=== PATIENT | female | born 1950 | race Caucasian/White ===

== ENCOUNTER 2022-04-28 07:07 | Outpatient (CLI) | payer MEDICARE, SELFPAY ==
--- NOTE | 2022-04-28 07:15 | TELERAD_ITS ---
[address] [address] Phone:?[phone] Fax:?[phone] Referring Physician Information: Jayesh Vargas M.D. [id number] [facility] [address] Phone:?[phone] Fax:?[phone] Patient:Aliyah Cervantes D.O.B:?1950 Sex:?Female Phone:?[phone] [facility] MRN:?[id number] Exam Date:?04/28/2022 ? Original Report EXAM: MRI of the LEFT KNEE, without contrast CLINICAL INFORMATION: Female, 72 years old, with left knee pain. INDICATION: Evaluate for lateral meniscal tear. PRIOR SURGERY: None reported. PLAIN FILMS: None available. COMPARISONS: No prior MRIs available. TECHNICAL INFORMATION: Using a 1.5T MR scanner and a localizing surface coil: sagittals: PD, PDFS coronals: PD, T2FS axials: PD, PDFS SEDATION: None CONTRAST: None FINDINGS: Knee joint: Effusion: Moderate left knee effusion. Popliteal cyst: None. Loose bodies: None. Subcutaneous and extra-articular soft tissues: Unremarkable. Ligaments: ACL: Intact ACL anteromedial and posterolateral bundles, without sprain or tear. PCL: Intact PCL, without acute or chronic injury. MCL: Intact MCL superficial and deep layers, without injury. LCL: Intact LCL, without injury. Posterolateral corner: No posterolateral corner soft tissue injury. Popliteus, biceps femoris, iliotibial band, popliteofibular ligament and lateral gastrocnemius are intact. Posteromedial corner: Mild-moderate semimembranosus insertional tendinopathy with moderate-marked semimembranosus bursitis (axial T2FS series 4 images 20-29). Pes anserine tendons and posterior oblique ligament are without injury, tendinopathy or bursitis. Extensor mechanism: Patellar tendon: Intact, without tendinopathy. Quadriceps tendon: Intact, without tendinopathy. Retinacula: Medial and lateral retinacula are intact. Fat pads: Unremarkable infrapatellar Hoffa's, quadriceps and prefemoral fat pads. Medial compartment: Medial meniscus: Apical free edge and undersurface fraying/subtle tearing is present throughout the medial meniscal posterior horn over a length of approximately 8 mm (sagittal PDFS series 6 images 20-22). Meniscal extrusion measures 3 mm. No parameniscal cyst. Medial femoral condyle: Broad-based grade II/III chondromalacia throughout the central surface of the medial femoral condyle, with mild marginal osteophytosis. Medial tibial plateau: Broad-based grade II chondromalacia of the medial tibial plateau, with minimal marginal osteophytosis. Lateral compartment: Lateral meniscus: Complex, multidirectional tearing throughout the entire lateral meniscus, most pronounced throughout the anterior horn and body segments (sagittal PD series 5 images 614 and coronal STIR series 8 images 12-22). This is associated with 6 oh meters of meniscal extrusion. No parameniscal cyst. Lateral femoral condyle & tibial plateau: Broad-based grade III chondromalacia throughout the central, weightbearing aspect of the lateral compartment, with moderate marginal osteophytosis and reactive osseous changes (coronal STIR series 8 image 18 and sagittal PDFS series 6 image 9). Patellofemoral joint: Patella: Generalized grade III/IV chondromalacia of the patella, with mild marginal osteophytosis and reactive osseous changes. Trochlea: Broad-based grade III/IV chondromalacia throughout the lateral facet and central sulcus of the trochlea, with moderate marginal osteophytosis and mild reactive osseous changes. Proximal tibiofibular joint: Unremarkable, without evidence of ligament sprain injury, joint effusion or adjacent marrow edema. Bones: No stress/occult fractures or other marrow edema/pathology. IMPRESSION: 1. Complex, multidirectional degenerative tearing throughout nearly the entire lateral meniscus. 2. Moderate osteoarthritis of the lateral compartment. 3. Moderate marked osteoarthritis of the patellofemoral compartment. 4. Apical free edge and undersurface fraying/subtle tearing of the medial meniscal posterior horn measuring 8 mm. 5. Mild osteoarthritis of the medial compartment. 6. Mild-moderate semimembranosus insertional tendinopathy with moderate-marked semimembranosus bursitis. 7. Moderate knee joint effusion. No popliteal (Rizzo's) cyst. 8. No cruciate or collateral ligament sprain/tear. BC Electronically signed on 04/28/2022 1:38:00 PM by Baudilio Choudhary M.D. Addendum A EXAM: MRI of the?RIGHT?KNEE, without contrast - AMENDED REPORT (See underlined below in Section:?Exam, clinical information, & findings) CLINICAL INFORMATION: Female, 72 years old, with?right?knee pain. INDICATION: Evaluate for lateral meniscal tear. PRIOR SURGERY: None reported. PLAIN FILMS: None available. COMPARISONS: No prior MRIs available. TECHNICAL INFORMATION: Using a 1.5T MR scanner and a localizing surface coil: sagittals: PD, PDFS coronals: PD, T2FS axials: PD, PDFS SEDATION: None CONTRAST: None FINDINGS: Knee joint: Effusion: Moderate?right?knee effusion. Popliteal cyst: None. Loose bodies: None. Subcutaneous and extra-articular soft tissues: Unremarkable. Ligaments: ACL: Intact ACL anteromedial and posterolateral bundles, without sprain or tear. PCL: Intact PCL, without acute or chronic injury. MCL: Intact MCL superficial and deep layers, without injury. LCL: Intact LCL, without injury. Posterolateral corner: No posterolateral corner soft tissue injury. Popliteus, biceps femoris, iliotibial band, popliteofibular ligament and lateral gastrocnemius are intact. Posteromedial corner: Mild-moderate semimembranosus insertional tendinopathy with moderate-marked semimembranosus bursitis (axial T2FS series 4 images 20-29). Pes anserine tendons and posterior oblique ligament are without injury, tendinopathy or bursitis. Extensor mechanism: Patellar tendon: Intact, without tendinopathy. Quadriceps tendon: Intact, without tendinopathy. Retinacula: Medial and lateral retinacula are intact. Fat pads: Unremarkable infrapatellar Hoffa's, quadriceps and prefemoral fat pads. Medial compartment: Medial meniscus: Apical free edge and undersurface fraying/subtle tearing is present throughout the medial meniscal posterior horn over a length of approximately 8 mm (sagittal PDFS series 6 images 20-22). Meniscal extrusion measures 3 mm. No parameniscal cyst. Medial femoral condyle: Broad-based grade II/III chondromalacia throughout the central surface of the medial femoral condyle, with mild marginal osteophytosis. Medial tibial plateau: Broad-based grade II chondromalacia of the medial tibial plateau, with minimal marginal osteophytosis. Lateral compartment: Lateral meniscus: Complex, multidirectional tearing throughout the entire lateral meniscus, most pronounced throughout the anterior horn and body segments (sagittal PD series 5 images 614 and coronal STIR series 8 images 12-22). This is associated with 6 oh meters of meniscal extrusion. No parameniscal cyst. Lateral femoral condyle & tibial plateau: Broad-based grade III chondromalacia throughout the central, weightbearing aspect of the lateral compartment, with moderate marginal osteophytosis and reactive osseous changes (coronal STIR series 8 image 18 and sagittal PDFS series 6 image 9). Patellofemoral joint: Patella: Generalized grade III/IV chondromalacia of the patella, with mild marginal osteophytosis and reactive osseous changes. Trochlea: Broad-based grade III/IV chondromalacia throughout the lateral facet and central sulcus of the trochlea, with moderate marginal osteophytosis and mild reactive osseous changes. Proximal tibiofibular joint: Unremarkable, without evidence of ligament sprain injury, joint effusion or adjacent marrow edema. Bones: No stress/occult fractures or other marrow edema/pathology. IMPRESSION: 1. Complex, multidirectional degenerative tearing throughout nearly the entire lateral meniscus. 2. Moderate osteoarthritis of the lateral compartment. 3. Moderate marked osteoarthritis of the patellofemoral compartment. 4. Apical free edge and undersurface fraying/subtle tearing of the medial meniscal posterior horn measuring 8 mm. 5. Mild osteoarthritis of the medial compartment. 6. Mild-moderate semimembranosus insertional tendinopathy with moderate-marked semimembranosus bursitis. 7. Moderate knee joint effusion. No popliteal (Rizzo's) cyst. 8. No cruciate or collateral ligament sprain/tear. BC Electronically signed on 04/28/2022 3:06:00 PM by Baudilio Choudhary M.D.
== END 2022-04-28 07:08 | disposition home or self-care (01) ==
LOC: MRI 07:08
PROVIDERS: PCP Family Medicine; Visit Provider Orthopaedic Surgery Sports Medicine
DX: M25.561 Pain in right knee (principal); S83.281A Other tear of lateral meniscus, current injury, right knee, initial encounter; M17.11 Unilateral primary osteoarthritis, right knee; M25.461 Effusion, right knee; M71.561 Other bursitis, not elsewhere classified, right knee
CPT/HCPCS: 73721

== ENCOUNTER 2022-08-04 09:41 | Day surgery (SDC) | payer MEDICARE, SELFPAY ==
[2022-08-04] VITALS (22 sets, daily range): BP systolic 96–147; BP diastolic 44–95; PULSE 53–79; RESP 13–16; TEMP 35.4–36.9; O2SAT 93–100; BMI 31.3
[2022-08-04] MEDS: CELECOXIB 200 MG CAPSULE PO ×2 (09:58→20:34)
[2022-08-04] MEDS: OXYCODONE (CR) 10 MG TAB.ER.12H PO (09:58)
[2022-08-04] MEDS: LACTATED RINGERS 1000 ML 1,000 ML 100 ML IV ×2 (10:00→12:03)
[2022-08-04] MEDS: ACETAMINOPHEN 500 MG TABLET 1000 MG PO ×2 (10:22→16:32)
--- NOTE | 2022-08-04 10:27 | CRLHL7_ITS ---
For Patients: As a result of the Cures Act, medical imaging exams and procedure reports are released immediately into your electronic medical record. You may view this report before your referring provider. If you have questions, please contact your health care provider. INDICATION: Post operative right total knee arthroplasty TECHNIQUE: Knee radiograph 2 views right COMPARISON: None FINDINGS: Bone: No acute fractures or aggressive bone lesions are identified. Joint: The patient is status post a total knee arthroplasty with patellar resurfacing. No significant knee effusion is seen. Soft tissue: Anterior skin, subcutaneous gas and joint gas are present from recent surgery. No radiopaque foreign bodies are seen. IMPRESSION: 1. There is an unremarkable postoperative appearance of the knee arthroplasty. Dictated by: Armand Mccauley MD @ 08/04/2022 14:05:32 (Electronically Signed)
[2022-08-04] MEDS: SODIUM CHLORIDE 0.9 % (FLUSH) 10 ML SYRINGE IVF (10:34)
[2022-08-04] MEDS: fentaNYL 100 MCG/2 ML inj IVP (10:54)
[2022-08-04] MEDS: MIDAZOLAM HCL 1 MG/ML inj IVP (10:54)
--- NOTE | 2022-08-04 11:04 | W.PM.NB ---
Nerve Block Nerve Block Time Seen by Provider: 10:55 Date Seen: 08/04/22 Type of block requested by surgeon for post-operative analgesia: geniculars and adductor canal Side: right Time out performed: Yes Verification of patient name: Yes Verification of date of : Yes Site marking: site marked Name of person performing procedure: jodi Continuous monitoring Was continuous monitoring of O2 sat, B/P, dowel inserting machine operator, recorded every 15 minutes?: Yes Procedure Checklist: sterile prep, needles and gloves Ultrasound guided. Images saved: Yes Medications given in 5ml increments after negative aspiration: Ropivicaine %: 0.5 mL: 20 Needle gauge: 20 Decadron (mg): 10 Precedex (mcg): 25 Patient tolerated procedure well: Yes Block Charges Block Charge (with Pro Fee): Femoral Nerve Use of Ultrasound Machine for Block: Yes- US Guidance/pain block
--- NOTE | 2022-08-04 11:06 | SUR.PREOP ---
TIME?OUT:?1053 PT/RN/MDA?VERIFICATION?OF?SURGICAL?SITE RIGHT KNEE,?PROCEDURE BLOCK,?AND?CONSENT OBTAINED?PRIOR?TO?INVASIVE?PROCEDURE.
--- NOTE | 2022-08-04 11:06 | W.PM.NB ---
Nerve Block Nerve Block Time Seen by Provider: 10:55 Date Seen: 08/04/22 Type of block requested by surgeon for post-operative analgesia: geniculars Side: right Time out performed: Yes Verification of patient name: Yes Verification of date of : Yes Site marking: site marked Name of person performing procedure: jodi Continuous monitoring Was continuous monitoring of O2 sat, B/P, outside plant cable engineer, recorded every 15 minutes?: Yes Procedure Checklist: sterile prep, needles and gloves Ultrasound guided. Images saved: Yes Medications given in 5ml increments after negative aspiration: Ropivicaine %: 0.5 mL: 10 Needle gauge: 25 Patient tolerated procedure well: Yes Block Charges Block Charge (with Pro Fee): Genicular Nerve Block Use of Ultrasound Machine for Block: No
[2022-08-04] MEDS: TRANEXAMIC ACID 100 MG/ML INJ 1000 MG IV (11:33)
[2022-08-04] MEDS: CEFAZOLIN 2 GM in 0.9 % SODIUM CHLORIDE Mini-bag 100 ML IVPB ×2 (11:33→17:51)
--- NOTE | 2022-08-04 12:37 | P.ORPRC_ITS ---
Procedure Note Date of procedure: 08/04/22 Procedure: PREOPERATIVE DIAGNOSIS: 1. Right knee osteoarthritis, primary, severe POSTOPERATIVE DIAGNOSIS: 1. Right knee osteoarthritis, primary, severe PROCEDURE: 1. Right total knee arthroplasty SURGEON: Jayesh Vargas MD. STACKING MACHINE OPERATOR: Dewey ARMANDO - Of note, a skilled assignment desk assistant was critical for this case to aid in patient positioning, tissue retraction, limb manipulation/positioning, and closure. ANESTHESIA: Spinal anesthetic IMPLANTS: DePuy J&J all cemented TKA - Attune PS femur size 5 regular, size 4 tibia, 5 poly spacer, 38 mm patella TOURNIQUET: 75 minutes at 300 torr EBL: 50 ml COMPLICATIONS: None evident INDICATIONS: The patient is a pleasant 72-year-old female who has experienced severe right knee pain and difficulty bearing weight. Workup included x-rays which revealed severe osteoarthrosis in the knee. Given the deformity, the dysfunction, and the pain, as well as the failure of nonoperative management, recommendation was made for surgery. FINDINGS: Full-thickness chondral loss lateral compartment with significant degenerative lateral meniscus tear. Significant chondromalacia remaining compartments. Large popliteal cyst. Multiple osteophytes diffusely around the femur and tibia DESCRIPTION OF PROCEDURE: Following a thorough discussion of risks, benefits, and alternatives consent was obtained and the right knee was marked. The patient was brought to the operating room and placed supine on the operating table. Induction of anesthesia was undertaken. 2 g IV Ancef and 1 g tranexamic acid was administered within 1 hr of incision preoperatively. Proper time-out was performed identifying proper patient, site, procedure. The operative extremity was prepped and draped in the appropriate sterile fashion using ChloraPrep after the patient was positioned supine with all bony prominences well padded. A longitudinal, anterior, midline skin incision was made starting approximately 3cm proximal to the superior pole of the patella and advanced distal to the tib ial tubercle. A median parapatellar arthrotomy was created. A medial subperiosteal sleeve was created with knife, phillips elevator and curved osteotome. The retropatellar fatpad was resected and the synovium in the suprapatellar pouch excised to visualize the anterior femoral cortex. Femoral preparation was performed via an intramedullary guide. Step drill allowed access into the femoral canal. The distal cutting guide was placed with 5? of valgus and 10 mm cut on the distal femur. Femur was sized using a posterior referencing guide in 3 ? of external rotation. This found have a best fit with the sizing noted above. The 4 in 1 cutting block was then placed, and the distal femur shaped accordingly. The box cut was then created and the trial implant inserted to confirm appropriate fit. We turned our attention to the proximal tibia. Extramedullary guide was utilized for cutting with the goal of being 90 degree cut from the mechanical axis of the tibia in the varus/valgus plane utilizing tibial crest as the primary alignment. Initially a 4 mm resection was performed from the medial tibial plateau. Ultimately, balancing was achieved in both flexion and extension in both varus and valgus. The knee was able to achieve full extension as well comfortably. The patella was initially measured and found have a thickness of 24 mm. It was resected back to approximately 14 mm. It was sized to be a best fit with as noted above. This was drilled, trial placed. All trials were placed and found to have an excellent stability and balance. At this stage, trial implants were removed, the knee was thoroughly irrigated with normal saline, and the cement was mixed. After irrigation, the knee was thoroughly dried, and cement placed, with the real tibial and femoral implants placed along with the patella. Trial poly spacer was placed and confirmed to have excellent range of motion and full extension, and the real poly spacer opened and inserted. All extra cement was removed, and a 3 min Betadine soak performed. Finally, a final irrigation round with normal saline was performed. Closure performed with 0 Vicryl and #0 Stratafix for the quad tendon/retinaculum. 2-0 Vicryl for the subcutaneous and 4-0 Stratafix for subcuticular closure. Dressings were applied and the patient was awoken from anesthesia after the tourniquet deflated and transferred the PACU in stable co ndition. A skilled assignment desk assistant was critical for this case to aid in patient positioning, tissue retraction, bone exposure, limb manipulation/positioning, patient safety, and closure. PLAN: 1. Weight bear as tolerated operative extremity. 2. 23 hr perioperative antibiotics. 3. Ice. 4. PT/OT consults for ambulation assistance/mobility education. 5. Social work consult for discharge planning. 6. DVT prophylaxis with at SCDs, Maxi Hose, and aspirin twice daily.
--- NOTE | 2022-08-04 12:54 | W.ANESCHARGE ---
Anesthesia Charges Start Date/Time Anesthesia Start Date: 08/04/22 Anesthesia Start Time: 11:19 Stop Date/Time Anesthesia Stop Date: 08/04/22 Anesthesia Stop Time: 13:11 Summary Emergency: No Extremes of Age: Over 71-CPT 49123
--- NOTE | 2022-08-04 13:20 | W.ANESCHARGE ---
Anesthesia Charges Start Date/Time Anesthesia Start Date: 08/04/22 Anesthesia Start Time: 11:19 Stop Date/Time Anesthesia Stop Date: 08/04/22 Anesthesia Stop Time: 13:11 Summary Emergency: No Extremes of Age: Over 71-CPT 96155
--- NOTE | 2022-08-04 13:54 | SUR.PHASEI ---
patient met discharge criteria per anesthesia
[2022-08-04] MEDS: OXYCODONE 5 MG TABLET PO ×2 (16:32→20:34)
[2022-08-04] MEDS: HYDROmorphone 0.5 mg/0.5 ml inj IVP (17:57)
--- NOTE | 2022-08-04 18:24 | PC.NURSE ---
shift note: pt from recovery to rm 258 via bed @ 1353. pt a&o x3. pt placed on antonio huuger for comfort. pt able to move bilat l/e @ 1445. cms intact, PP+ bilat. pt has bilat knee high teds and plexi pulses. Pt having increased pain @ 1530 and received prn meds for comfort x2 with relief. pt dangled at bedside for 15 mins but became hot and nauseated. pt placed back to bed. LS clr. HR regular.
[2022-08-04] MEDS: ASPIRIN 81 MG TABLET EC PO (20:34)
[2022-08-04] MEDS: SENNOSIDES 1 TAB TABLET 2 TAB PO (20:34)
[2022-08-05] MEDS: ACETAMINOPHEN 500 MG TABLET 1000 MG PO ×2 (00:26→05:41)
[2022-08-05] MEDS: CEFAZOLIN 2 GM in 0.9 % SODIUM CHLORIDE Mini-bag 100 ML IVPB ×2 (01:17→09:44)
[2022-08-05 03:00] VITALS: BP 141/74; PULSE 80; RESP 18; TEMP 35.9; O2SAT 97
[2022-08-05 03:29] VITALS: BP 141/74; PULSE 80; RESP 18; TEMP 35.9; O2SAT 97
--- NOTE | 2022-08-05 04:40 | PC.NURSE ---
Shift note: pt is post day 1. Tolerated activity very well including sitting at the edge of bed and ambulating to and from the bathroom with walker and GB. Resumed regular and diet, had about 900ml of clear urine shift start. Pain has been managed with cold application and PRN Oxycodone. Dressing appears clean and dry.
[2022-08-05] MEDS: OXYCODONE 5 MG TABLET PO ×2 (06:31→09:57)
[2022-08-05 06:50] LABS: Potassium* 4.5 mmol/L (3.6-5.1); Sodium* 135 mmol/L (135-149)
[2022-08-05 06:53] LABS: Blood Urea Nitrogen* 21 mg/dL (7-30); Creatinine* 0.6 mg/dL (0.5-1.5); Estimated Glomerular Filt Rate 96 ml/min
[2022-08-05 07:07] LABS: Hematocrit 34.5 % (33.0-51.0); Hemoglobin* 11.4 gm/dL (12.0-16.0); Immature Granulocytes Abs Auto 0.02 K/uL (0.00-0.30); Lymphocytes Percent Auto 12.5 % (20-44); Mean Corpuscular HGB Conc 33 gm/dL (32-36); Mean Corpuscular Hemoglobin 31 pg (26-34); Mean Corpuscular Volume 95 fL (80-100); Monocytes Percent Auto 10.7 % (0.0-11.0); Neutrophils Percent Auto 76.6 % (42.0-72.0); Platelet Count* 241 K/uL (140-440); RDW Coefficient of Variation % 12.9 % (11.5-15.5); Red Blood Count 3.63 m/uL (4.00-5.20); White Blood Count* 8.05 K/uL (4.50-11.00)
[2022-08-05 07:15] LABS: Slide Review Reflex No
--- NOTE | 2022-08-05 07:24 | PM.ORPN ---
Subjective Subjective Date Seen: 08/05/22 Principal diagnosis: Status postop day 1 right total knee arthroplasty Interval history: Patient reports doing well. Right knee pain is migrating, this morning it is in her calf. A period of nausea and hot feeling while sitting at edge of bed around 1800 hours last night, which resolved after lying back down. This was her first time sitting up. Pain managed with scheduled /PRN medications and ice. DVT prophylaxis 81 mg aspirin by mouth twice daily, bilateral knee high Maxi stockings, and SCDs. Denies fevers, chills, aches, N/V, CP, SOB/JEFFRIES, or lightheadedness. Ortho Exam Narrative Exam Narrative: -Patient appears comfortable; no apparent acute distress. The room is dark and she is sleeping. Received her oral narcotic 1 hour ago. -Alert and oriented times 3 -Operative knee mildly swollen; soft tissues supple; no ecchymosis; no erythematous streaking Warmth appropriate -Surgical dressing clean, dry, intact; no drainage -Bilateral calfs soft; no significant swelling, edema, tenderness, erythema, discoloration, warmth, or palpable cords -2+ DP/PT pulses, intact dermatomes and myotomes distally (5/5 strength) Const Vital Signs, click to edit/add: Vital Signs - 24 hr 08/04/22 10:08 08/04/22 10:50 08/04/22 10:55 Temperature 98.4 F Pulse Rate 72 62 68 Pulse Rate [Left Pulse Oximeter] Pulse Rate [Right Blood Pressure Cuff] Respiratory Rate 16 16 16 Blood Pressure 145/76 H 122/65 123/67 Blood Pressure [Left Arm] Blood Pressure [Right Arm] Pulse Oximetry 96 100 98 Oxygen Delivery Method Room Air Nasal Cannula Nasal Cannula Oxygen Flow Rate 2 2 08/04/22 11:05 08/04/22 13:13 08/04/22 13:20 Temperature 97 F L 97 F L Pulse Rate 67 57 L 56 L Pulse Rate [Left Pulse Oximeter] Pulse Rate [Right Blood Pressure Cuff] Respiratory Rate 16 13 14 Blood Pressure 123/65 96/44 L 104/59 L Blood Pressure [Left Arm] Blood Pressure [Right Arm] Pulse Oximetry 97 97 96 Oxygen Delivery Method Nasal Cannula Oxygen Flow Rate 2 08/04/22 13:25 08/04/22 13:30 08/04/22 13:35 Temperature 97 F L 97 F L 97 F L Pulse Rate 53 L 54 L 55 L Pulse Rate [Left Pulse Oximeter] Pulse Rate [Right Blood Pressure Cuff] Respiratory Rate 16 16 16 Blood Pressure 97/54 L 100/52 L 102/55 L Blood Pressure [Left Arm] Blood Pressure [Right Arm] Pulse Oximetry 93 93 95 Oxygen Delivery Method Oxygen Flow Rate 08/04/22 13:40 08/04/22 13:45 08/04/22 13:53 Temperature 97 F L 96.8 F L 96.9 F L Pulse Rate 54 L 55 L 55 L Pulse Rate [Left Pulse Oximeter] Pulse Rate [Right Blood Pressure Cuff] Respiratory Rate 16 16 16 Blood Pressure 106/60 107/64 Blood Pressure [Left Arm] Blood Pressure [Right Arm] 106/62 Pulse Oximetry 93 96 Oxygen Delivery Method Room Air Oxygen Flow Rate 08/04/22 13:48 08/04/22 13:53 08/04/22 14:05 Temperature 96.9 F L 96.9 F L 96.9 F L Pulse Rate Pulse Rate [Left Pulse Oximeter] 55 L 55 L 56 L Pulse Rate [Right Blood Pressure Cuff] 55 L Respiratory Rate 16 16 16 Blood Pressure Blood Pressure [Left Arm] 106/62 120/65 Blood Pressure [Right Arm] 106/62 Pulse Oximetry 97 97 Oxygen Delivery Method Room Air Room Air Room Air Oxygen Flow Rate 08/04/22 14:15 08/04/22 14:30 08/04/22 14:45 Temperature 96.9 F L 95.8 F L 96.3 F L Pulse Rate Pulse Rate [Left Pulse Oximeter] 53 L 55 L 58 L Pulse Rate [Right Blood Pressure Cuff] Respiratory Rate 16 16 16 Blood Pressure Blood Pressure [Left Arm] 113/75 Blood Pressure [Right Arm] 118/63 114/63 Pulse Oximetry 94 94 94 Oxygen Delivery Method Room Air Room Air Room Air Oxygen Flow Rate 08/04/22 15:00 08/04/22 15:30 08/04/22 16:30 Temperature 96.5 F L 96.5 F L 97.2 F L Pulse Rate Pulse Rate [Left Pulse Oximeter] 64 65 62 Pulse Rate [Right Blood Pressure Cuff] Respiratory Rate 16 16 16 Blood Pressure Blood Pressure [Left Arm] 128/77 Blood Pressure [Right Arm] 113/64 114/95 H Pulse Oximetry 94 95 93 Oxygen Delivery Method Room Air Room Air Room Air Oxygen Flow Rate 08/04/22 17:30 08/04/22 18:00 08/05/22 03:00 Temperature 97.2 F L 96.6 F L Pulse Rate Pulse Rate [Left Pulse Oximeter] 64 79 Pulse Rate [Right Blood Pressure Cuff] 80 Respiratory Rate 16 16 18 Blood Pressure Blood Pressure [Left Arm] 133/62 147/69 H 141/74 H Blood Pressure [Right Arm] Pulse Oximetry 93 93 97 Oxygen Delivery Method Room Air Room Air Room Air Oxygen Flow Rate 08/05/22 03:29 Temperature 96.6 F L Pulse Rate Pulse Rate [Left Pulse Oximeter] Pulse Rate [Right Blood Pressure Cuff] 80 Respiratory Rate 18 Blood Pressure Blood Pressure [Left Arm] 141/74 H Blood Pressure [Right Arm] Pulse Oximetry 97 Oxygen Delivery Method Room Air Oxygen Flow Rate Assessment and Plan Assessment and plan (1) Status post total knee replacement, right: Problem details: POD 1 right total knee arthroplasty Status: Acute (2) Anemia associated with acute blood loss: Problem details: Hgb 11.4, asymptomatic (pt denies CP, SOB/JEFFRIES, tachycardia, tachypnea, lightheadedness or dizziness). Status: Acute Plan - Complete 23 hour perioperative antibiotics. - PT/OT consult for education and assistance. - Social work consult for discharge planning - Prescribed analgesics as needed - DVT prophylaxis: 81 mg aspirin by mouth twice daily, bilateral knee high Maxi Hose stockings and SCDs - Hold amlodipine today; she may restart on 08/06/2022. Her other medications may be restarted today. - Anticipation is for discharge to home with spouse 08/05/2022 if the patient remains medically stable, pain is controlled, and they are safe with mobilization.
--- NOTE | 2022-08-05 07:43 | P.DS_ITS ---
DS: Providers Provider Date Seen: 08/05/22 Date of admission: med/surg recovery 08/04/22 Primary care physician: Lauren Romero MD Consults: 08/04/22 13:48 Consult to Occupational Therapy [CONS] Routine Comment: Reason(s) for OT Consult:: ADLs Prior to Discharge Any Restrictions?:: See Comment Comment: See nursing activity order for any restrictions. Consult to Physical Therapy [CONS] Routine Comment: Ambulate in the [place]opez today. Reason(s) for PT Consult:: TKA TX Protocol POD#0 Any Restrictions?:: See Comment Comment: See nursing activity order for any restrictions. Consult to Physician [CONS] Routine Comment: Consulting Provider: Hospitalists Has provider been notified: No Consult to Marking Machine Operator [CONS] Routine Comment: Reason for Consult:: Discharge Planning Needs Attending Physician on discharge: Jayesh Vargas MD Date of Discharge: 08/05/22 DS: Diagnosis Discharge Diagnosis (1) Osteoarthritis of right knee: Status: Acute Problem details: Right knee osteoarthrosis, severe (2) Status post total knee replacement, right: Status: Acute Problem details: POD 1 right total knee arthroplasty DS: Summary Hospital Course Hospital Course: The patient has a history of right knee osteoarthritis, primary, severe. After appropriate preoperative evaluation, the patient underwent right total knee arthroplasty. Postoperatively given anticoagulation for deep vein thrombosis prophylaxis. They progressed to PT/OT and were felt ready and prepared for discharge to home with appropriate pain medication and anticoagulation medications. Status at Discharge Cognitive/behavioral status at discharge: No concerns Functional status at discharge: uses cane/walker Overall status at discharge: patient is progressing back to baseline Time Spent with Patient Time attestation: Total time spent providing and/or coordinating discharge services: Time spent: Less than 30 minutes Exam 2 Const: Vital Signs, click to edit/add: Vital Signs - 24 hr 08/04/22 10:08 08/04/22 10:50 08/04/22 10:55 Temperature 98.4 F Pulse Rate 72 62 68 Pulse Rate [Left P ulse Oximeter] Pulse Rate [Right Blood Pressure Cuf f] Respiratory Rate 16 16 16 Blood Pressure 145/76 H 122/65 123/67 Blood Pressure [Le ft Arm] Blood Pressure [Ri ght Arm] Pulse Oximetry 96 100 98 Oxygen Delivery Me thod Room Air Nasal Cannula Nasal Cannula Oxygen Flow Rate 2 2 08/04/22 11:05 08/04/22 13:13 08/04/22 13:20 Temperature 97 F L 97 F L Pulse Rate 67 57 L 56 L Pulse Rate [Left P ulse Oximeter] Pulse Rate [Right Blood Pressure Cuf f] Respiratory Rate 16 13 14 Blood Pressure 123/65 96/44 L 104/59 L Blood Pressure [Le ft Arm] Blood Pressure [Ri ght Arm] Pulse Oximetry 97 97 96 Oxygen Delivery Me thod Nasal Cannula Oxygen Flow Rate 2 08/04/22 13:25 08/04/22 13:30 08/04/22 13:35 Temperature 97 F L 97 F L 97 F L Pulse Rate 53 L 54 L 55 L Pulse Rate [Left P ulse Oximeter] Pulse Rate [Right Blood Pressure Cuf f] Respiratory Rate 16 16 16 Blood Pressure 97/54 L 100/52 L 102/55 L Blood Pressure [Le ft Arm] Blood Pressure [Ri ght Arm] Pulse Oximetry 93 93 95 Oxygen Delivery Me thod Oxygen Flow Rate 08/04/22 13:40 08/04/22 13:45 08/04/22 13:53 Temperature 97 F L 96.8 F L 96.9 F L Pulse Rate 54 L 55 L 55 L Pulse Rate [Left P ulse Oximeter] Pulse Rate [Right Blood Pressure Cuf f] Respiratory Rate 16 16 16 Blood Pressure 106/60 107/64 Blood Pressure [Le ft Arm] Blood Pressure [Ri ght Arm] 106/62 Pulse Oximetry 93 96 Oxygen Delivery Me thod Room Air Oxygen Flow Rate 08/04/22 13:48 08/04/22 13:53 08/04/22 14:05 Temperature 96.9 F L 96.9 F L 96.9 F L Pulse Rate Pulse Rate [Left P ulse Oximeter] 55 L 55 L 56 L Pulse Rate [Right Blood Pressure Cuf f] 55 L Respiratory Rate 16 16 16 Blood Pressure Blood Pressure [Le ft Arm] 106/62 120/65 Blood Pressure [Ri ght Arm] 106/62 Pulse Oximetry 97 97 Oxygen Delivery Me thod Room Air Room Air Room Air Oxygen Flow Rate 08/04/22 14:15 08/04/22 14:30 08/04/22 14:45 Temperature 96.9 F L 95.8 F L 96.3 F L Pulse Rate Pulse Rate [Left P ulse Oximeter] 53 L 55 L 58 L Pulse Rate [Right Blood Pressure Cuf f] Respiratory Rate 16 16 16 Blood Pressure Blood Pressure [Le ft Arm] 113/75 Blood Pressure [Ri ght Arm] 118/63 114/63 Pulse Oximetry 94 94 94 Oxygen Delivery Wv thod Room Air Room Air Room Air Oxygen Flow Rate 08/04/22 15:00 08/04/22 15:30 08/04/22 16:30 Temperature 96.5 F L 96.5 F L 97.2 F L Pulse Rate Pulse Rate [Left P ulse Oximeter] 64 65 62 Pulse Rate [Right Blood Pressure Cuf f] Respiratory Rate 16 16 16 Blood Pressure Blood Pressure [Le ft Arm] 128/77 Blood Pressure [Ri ght Arm] 113/64 114/95 H Pulse Oximetry 94 95 93 Oxygen Delivery W[place] thod Room Air Room Air Room Air Oxygen Flow Rate 08/04/22 17:30 08/04/22 18:00 08/05/22 03:00 Temperature 97.2 F L 96.6 F L Pulse Rate Pulse Rate [Left P ulse Oximeter] 64 79 Pulse Rate [Right Blood Pressure Cuf f] 80 Respiratory Rate 16 16 18 Blood Pressure Blood Pressure [Le ft Arm] 133/62 147/69 H 141/74 H Blood Pressure [Ri ght Arm] Pulse Oximetry 93 93 97 [facility] Room [facility] Room Air Oxygen Flow Rate 08/05/22 03:29 Temperature 96.6 F L Pulse Rate Pulse Rate [Left P ulse Oximeter] Pulse Rate [Right Blood Pressure Cuf f] 80 Respiratory Rate 18 Blood Pressure Blood Pressure [Le ft Arm] 141/74 H Blood Pressure [Ri ght Arm] Pulse Oximetry 97 Oxygen Delivery W[place] thod Room Air Oxygen Flow Rate DS: Data Data Completed and Pending Labs on day of discharge: Labs from last 24 hours 08/05/22 08/05/22 05:35 05:35 WBC 8.05 RBC 3.63 L Hgb 11.4 L Hct 34.5 MCV 95 MCH 31 MCHC 33 RDW Coeff of Cr 12.9 Plt Count 241 Neut % (Auto) 76.6 H Lymph % (Auto) 12.5 L [place] % (Auto) 10.7 Eos % (Auto) 0.0 Baso % (Auto) 0.0 Neut # (Auto) 6.20 Lymph # (Auto) 1.00 [place] # (Auto) 0.90 Eos # (Auto) 0.00 Baso # (Auto) 0.00 Abs Immat Gran (auto) 0.02 Sodium 135 Potassium 4.5 BUN 21 Creatinine 0.6 Estimated Creat Clear 48.30 Estimated GFR 96 Discharge Plan Discharge Disposition: Home, Self-Care Discharging Surgeon: Jayesh Vargas Follow-Up Appointment: One week postop of PA Prescriptions: New aspirin 81 mg tablet,delayed release (DR/EC) 81 mg PO BID Qty: 60 0RF Rx Instructions: Medication to help prevent blood clots postoperatively; take TWICE daily. celecoxib 100 mg capsule 100 mg PO BID Qty: 60 0RF acetaminophen 500 mg capsule 500 - 1,000 mg PO Q6H MDD 4000mg PRNQty: 100 0RF oxycodone 5 mg tablet 2.5 - 5 mg PO Q4-6H MDD 6 PRN (Reason: pain) Qty: 42 0RF Rx Instructions: Take as needed for postop pain: 2.5mg mild pain, 5mg moderate-severe pain; wean as tolerated. sennosides-docusate sodium [Senna-S] 8.6-50 mg tablet 1 - 4 tab-cap PO BID PRN (Reason: constipation) Qty: 60 0RF Rx Instructions: Hold medication if experiencing loose stools. Continued atorvastatin 20 mg tablet 20 mg PO HS biotin 5,000 mcg tablet,disintegrating 5,000 mcg PO DAILY diphenhydramine-acetaminophen [Tylenol PM Extra Strength] 25-500 mg tablet 1 tab PO QHS calcium carbonate [Calcium 600] 600 mg calcium (1,500 mg) tablet 600 mg PO DAILY Held amlodipine 5 mg tablet 5 mg PO DAILY Hold Instructions: Resume on 08/06/22. Discontinued acetaminophen 500 mg capsule 1,000 mg PO DAILY ibuprofen [Addaprin] 200 mg tablet 600 mg PO DAILY PRN Activity Level: No Restrictions, Weight Bearing as Tolerated, Use Cane and Use Walker Discharge Diet: Regular Patient Instructions: Surgical Site Infections (DC) Additional Instructions: Wound: ?Do not remove original dressing; we will remove this at first postop visit in 1 week. Only remove dressing if integrity is in question. ?No immersing wound in water; showering okay; light scrub with your hand and body soap, rinse, dab dry ?Sutures are under the skin, will dissolve; allow surgical glue to come off naturally; do not scrub the wound or apply ointments/lotions ?Call our office with any redness that streaks, excessive drainage from the wound, or wound gapping. Ice/Elevate: ?Ice as needed for swelling and discomfort (cryocuff or ice pack); elevate frequently above the heart CARMEN socks: ?Wear for 1 month, remove for 1 hour 3 times per day ?These are frustrating to take on/off, but are important for blood clot prevention for 1 month after surgery Blood Clot Prevention (DVT): ?Medication: 81 mg aspirin by mouth twice daily (1 month) Driving: ?Do not drive while taking narcotic pain medication ?Anticipate 4-6 weeks no driving if operative leg is driving leg Dental: ?No elective dental work for 6 months post-op. If there is an urgent/emergent dental need, contact our office for an antibiotic prescription. Smoking/Alcohol: ?Do not smoke; do no drink alcohol especially when taking postoperative oral narcotic medication Seek Care from you Primary Care Provider if you experience the following issues in the postoperative phase and beyond: ?Bacterial infections such as: pneumonia, bacterial skin infection (cellulitis), UTI, high fever, chills unrelated to the operative body part - call your primary care physician urgently for treatment in hopes to protect your health and the metal implant. Referrals: ?PT, OT per patient preference - evaluate treat total knee arthroplasty protocol (gait training, ROM, ADLs) Follow up: ?Ortho surgeon follow-up in 6 weeks; repeat radiographs three views operative knee ?PA-C visit in 1 week *If there are any acute concerns regarding your surgery, please call our orthopedic clinic ([phone]) Forms: Work/Release Restrictions Follow-up: Lauren Romero MD [Primary Care Provider] - Discharge Orders: Discharge Order (Routine); Ordered 08/05/22 Ordered By: Adriel Olvera
[2022-08-05 09:41] VITALS: BP 147/72; PULSE 72; RESP 18; TEMP 36.7; O2SAT 96
[2022-08-05] MEDS: CELECOXIB 200 MG CAPSULE PO (09:43)
[2022-08-05] MEDS: ASPIRIN 81 MG TABLET EC PO (09:44)
[2022-08-05] MEDS: SENNOSIDES 1 TAB TABLET 2 TAB PO (09:44)
--- NOTE | 2022-08-05 11:50 | PC.SOCIAL ---
Addendum entered by MAYDA Davis 08/05/22 13:49: Reviewed social work production intern note. MAYDA Llamas Original Note: Pt. has plans to go home with spouse today, who is able to support as needed. No concerns about discharge.
== END 2022-08-05 11:55 | disposition home or self-care (01) ==
LOC: OR 09:42 → MEDSURG 09:47
PROVIDERS: PCP Family Medicine; Visit Provider Orthopaedic Surgery Sports Medicine
PROC: (CPT 27447; principal; 2022-08-04 11:30)
DX: M17.11 Unilateral primary osteoarthritis, right knee (principal); D62 Acute posthemorrhagic anemia; I10 Essential (primary) hypertension; E78.5 Hyperlipidemia, unspecified; M85.80 Other specified disorders of bone density and structure, unspecified site
CPT/HCPCS: 27447; 01402; 36415; 64447; 64454; 73560; 76942; 82565; 84132; 84295; 84520; 85025; 97110; 97116; 97162; 97165; 97530; 97535; 99100; A9270; C1776; J0690; J1100; J1170; J2250; J2405; J2704; J2795; J3010; J7120

== ENCOUNTER 2022-09-20 13:00 | Outpatient (RCR) | payer MEDICARE, SELFPAY ==
--- NOTE | 2022-07-22 13:00 | PT.OPEX ---
PT [facility] Eval PT [facility] Eval Start: 07/22/22 08:06 Freq: Status: Active Protocol: Document 07/22/22 12:50 KLV (Rec: 07/22/22 12:59 KLV [id number]) E-signed By Ann-Marie Juarez, PT Physical Therapy Outpatient Evaluation Insurance Information Insurance Name Medicare B Insurance Information/Comments [facility] medicare Medical Diagnosis Right knee pain Pre and post-operative right TKA Encounter for other orthopedic aftercare Treating Diagnosis Right knee pain, limited knee ROM, antalgic gait, impaired ADLs, gross R LE weakness Referring MD Vargas Subjective Subjective Lucía reports to PT for pre -operative assessment and preparation for upcoming R TKA DOS 08/04/22. She has previously had L TKA 2016. She is not currently ambulating with AD but A/D stairs with step to pattern and mainly relying on L leg d/t significant pain in R knee and limited with mobility of R knee. She has significant OA of right knee and surgical candidate. Overall well set up for discharge home with to assist. 3 stairs to enter house with railing on R side. Plans to sleep in bed on main floor initially with transition back up to bedroom upstairs once able. She is borrowing a FWW and SEC, has a shower chair and may be borrowing a sock aide. Only concern is her [place] dog and leaning on her but trying to train her prior to surgery. No other concerns or questions at this time. PMH: L TKA Current Work Status Retired Objective Other/Pertinent Objective Knee ROM -R 0-7-128 however slow to bend d/t pain -L 0-130 Standing posture: genu valgus R LE Gait: decreased stance time R LE, genu valgus positioning R Stairs: step to gait SL balance: unable R LE Quad contraction: good SLR: able to perform x10 without lag Functional Test Performed & Score LEFS: 46/80 Assessment Assessment/Impression Pt presents with signs and symptoms consistent with primary R knee OA. DOS: scheduled for 08/04/22. Anticipated deficits/ impairments in pain, ROM, and strength. Pt would benefit from skilled PT interventions to facilitate preparation for upcoming surgery and optimization of return to PLOF following surgery. She demonstrates independence with HEP and use of FWW as well as appropriate gait pattern on stairs. She is appropriate to proceed with surgery at this time and has a safe d/c plan. All questions answered today. Primary Functional Limitations Walking, standing, stair negotiation, bending, squatting, kneeling Plan of Care Rehabilitation Potential Good Physical Therapy Goals By end of session today, patient will... Demonstrate appropriate gait pattern with FWW to utilize post surgery for optimal safety when ambulating Demonstrate ability to negotiate stairs using appropriate stair pattern post surgery for optimal safety when at home and in community Verbalize understanding of most appropriate home set up including needed equipment for optimal safety and recovery post surgery Be independent in HEP program to show ability to perform appropriate exercises post surgery Treatment Plan/Direct Interventions Gait Training,Ice/Cold/ Vasopneumatic,Joint Mobilization,Manual Therapy, Neuromuscular Re-ed,Self-Care/ Home Management,Therapeutic Activities,Therapeutic Exercises Frequency/Duration 1-2 times per week for 8 weeks Will re-evaluate following surgery 08/09/22 Patient Will Be Discharged From Therapy Completion of LTG(s), Independent w/HEP, Independently Progressing Evaluation Billing Untimed Code Treatment Minutes 25 Complexity Low Certification Information Initial Certification Date 07/22/22 Ending Certification Date 10/16/22 Provider Signature Shows Agreement With POC & Medical Necessity Physician Signature & Date Requested Please Sign/Date Here Physician Comment/Change : Physician NPI Number #
== END 2022-12-03 11:13 | disposition home or self-care (01) ==
PROVIDERS: PCP Family Medicine; Visit Provider Orthopaedic Surgery Sports Medicine
DX: M17.11 Unilateral primary osteoarthritis, right knee (principal); Z51.89 Encounter for other specified aftercare
CPT/HCPCS: 97110; 97161; 97164; 97535

== ENCOUNTER 2023-07-25 10:15 | Outpatient (RCR) | payer MEDICARE, SELFPAY | END 2023-10-24 15:36 | disposition home or self-care (01) | PROVIDERS: PCP Family Medicine; Visit Provider Podiatrist | DX: M79.672 Pain in left foot (principal); Z51.89 Encounter for other specified aftercare | CPT/HCPCS: 97110; 97140; 97162 ==

== ENCOUNTER 2025-07-22 07:30 | Outpatient (RCR) | payer MEDICARE, SELFPAY ==
--- NOTE | 2025-07-05 17:33 | PT.OPEX ---
PT [place] Outpatient Eval PT [facility] Outpatient Eval Start: 07/04/25 16:08 Freq: Status: Active Protocol: Document 07/04/25 16:08 TANYA (Rec: 07/04/25 16:13 TANYA [id number]) E-signed By Antonia Joy DPT Physical Therapy Outpatient Evaluation Insurance Information Recert Due Date 10/02/25 Insurance Name Medicare B,[employer] Medical Diagnosis L LE weakness Lumbar DDD Spondylolisthesis lumbar region Treating Diagnosis LBP, L hip/thigh pain/sx, core/hip/glut/LE weakness, limited tolerance for extended standing/walking/stairs, interrupted sleep at times Subjective Subjective Patient reports chronic L hip/thigh pain/sx and LBP issues over the last 6+ months. Main c/o pain in L hip and thigh with transitional movements and with initial steps with walking. She reports it loosens up some and pain/sx decrease with walking, tends to gradually feel better as she moves but then can flare up again if she over does it. She denies any injury, trauma, falls. Patient reports noticing weakness in her L leg, she tends to favor her L leg due to pain. Reports always leading with her R leg with sit/stand, initial steps with walking, and with stairs. She usually performs step to pattern with up/down stairs at home. She feels her pain/sx have gradually been getting worse . She has tried aleve, tylenol, celebrex but with minimal relief. She thought maybe celebrex gave some relief but isn't taking it regularly. Denies any recent L hip xrays. Reports MD wants her to follow up with him if she doesn't improve to get an MRI of her LB . Patient feels pain, sx, weakness have gradually gotten worse. She is doing some exercises from prior PT daily, walking daily. She discontinued pickle ball due to pain/sx. 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 Date of Last 05/30/25 Physician Visit Current Work Status Retired Precautions Treatment Lumbar DDD, spondylolisthesis lumbar spine Precautions/ hx bilateral TKAs - R TKA around 3 years ago, L TKA Contraindications around 9 years ago Assessment Assessment/ Patient is a 75 year old female with LBP, L hip/thigh Impression pain/sx, core/hip/glut/LE weakness, limited tolerance for extended standing/walking/stairs, interrupted sleep at times. Pain rated 7/10 at times. Patient reports spikes of pain with transitional movements, sit/stand, and with initial standing/walking. States she is able to loosen up some once she gets moving. Main c/o pain in L hip/thigh region. She denies pain shooting down her L LE. L hip mobility is WFL but with some tightness, stiffness, pain with end range flex, abd, and IR. Patient with bilateral hip flexor tightness. She has a hx of chronic LBP, core/hip/glut weakness. She reports favoring L hip/LE due to pain so she is noticing some L hip/LE weakness. Some weakness with L hip flex, abd noted at 4-/5 with MMT due to pain. Pelvic/SI alignment assessed and equal this session. Able to loosen up LB/SI/pelvis/hips with manual therapy treatment this session. Able to initiate some exercises for core/hip/glut/LE mobility, strengthening this session. Patient was doing some of the exercises from prior PT, reviewed today. Patient would benefit from skilled PT for pain/sx management, core/hip/glut/ LE strengthening, improved LB/pelvis/SI/hip mobility/ stability, posture/body mechanics training, and establishment of HEP. Plan of Care Rehabilitation Good Potential Physical Therapy 1. Decrease LBP, L hip/thigh pain to less than/equal Goals to 4/10 with daily activities and with the progression of PT activities over the next 6-8 weeks. 2. Patient will be educated on posture/body mechanics and pain management strategies over the next 6-8 weeks for decreased stress on LB/L hip and decreased LBP and L hip/thigh pain. 3. Decrease L hip/thigh pain/sx by 50% or greater over the next 6 weeks for improved tolerance for daily/household activities, transitional movements, and walking. 4. Improve core/hip/glut/LE strength over the next 10- 12 weeks for improved posture, improved LB/SI/pelvic/hip stability, decreased stress on LB/pelvis/hip, decreased LB/hip/thigh pain, and improved tolerance for daily/household activities, transitional movements, and walking. 5. Patient will be I with HEP within 10-12 weeks for progression toward above goals, ongoing self-management of pain/sx, ongoing self improvements in core/hip/glut/LE strength, posture/body mechanics, and for improved tolerance for daily/household activities, transitional movements, and walking. Coordination/ Referral Source Communication With Treatment Plan/ Manual Therapy,Therapeutic Exercises Direct Interventions Frequency/Duration 1x/week Patient Will Be Completion of LTG(s),Skills Plateau,Independent w/HEP, Discharged From Independently Progressing Therapy Evaluation Billing Untimed Code 24 Treatment Minutes Complexity Moderate Certification Information Initial 07/04/25 Certification Date Ending Certification 10/02/25 Date Provider Signature Yes Required Provider Signature POC & Medical Necessity Shows Agreement With Physician NPI Number Write NPI# Here Physician Comment/ : Change Physician Signature Please Sign/Date Here & Date Requested
== END 2025-10-07 15:20 | disposition home or self-care (01) ==
PROVIDERS: PCP Family Medicine; Visit Provider Orthopaedic Surgery Sports Medicine
DX: R29.898 Other symptoms and signs involving the musculoskeletal system (principal); M51.360 Other intervertebral disc degeneration, lumbar region with discogenic back pain only; M43.16 Spondylolisthesis, lumbar region; Z51.89 Encounter for other specified aftercare
CPT/HCPCS: 97110; 97140; 97162

== ENCOUNTER 2025-08-13 09:03 | Outpatient (CLI) | payer MEDICARE, SELFPAY ==
--- NOTE | 2025-08-13 09:15 | MR_ITS ---
EXAM: MRI of the LEFT HIP, without contrast CLINICAL HISTORY: Ongoing left hip pain. COMPARISONS: Plain radiographs 08/01/2025. TECHNICAL: MR sequences of the left hip: Axials: PD FS Axial oblique: PD Coronals: PD, T2 Coronal pelvis: T1 and STIR Sagittals: PD and T2 CONTRAST: None SEDATION: None FINDINGS: Pelvis osseous structures: Sacrum: No fracture or destructive osseous lesion is seen of the imaged portions of the sacrum. Sacroiliac joints: Mild nonspecific arthritic changes within the bilateral sacroiliac joints. No convincing evidence of acute inflammatory sacroiliitis. Pubic rami: Edema-like signal within the bilateral pubic bodies is consistent with sequela of osteitis pubis. Labrum: Suspected linear tear within the base of the left hip labrum from the 1 o'clock position through 2 o'clock position anterosuperiorly and suspected more generalized labral fraying although it must be noted that the labrum is not well evaluated because of motion artifact and nonarthrogram technique. Hip joint: Physiologic amount of joint fluid. No discrete left hip chondral loss is seen although it must be noted that smooth chondral thinning is not well evaluated for and cannot be excluded by MRI. No subchondral cystic change/subchondral edema-like signal. Proximal femur: No fracture, osseous stress injury, avascular necrosis, or suspicious bone marrow signal abnormality is seen. Acetabulum: No subchondral cysts, periacetabular ossicles or marrow edema. Coverage: Left lateral center edge (CE) angle measures approximately 48? correcting for coronal pelvic tilt, midline coronal series 5 image 14. Ligamentum teres: Unremarkable. Myotendinous structures: Gluteus abductors: Ill-defined moderate to high-grade partial tearing of the left gluteus medius tendon insertion. Moderate left greater trochanter bursitis. Rectus abdominis-adductor longus aponeurosis, adductors, and rectus abdominis: Unremarkable. Hamstrings: Unremarkable. Flexors: The iliopsoas and rectus femoris tendons are intact. Quadratus femoris muscle: Unremarkable. Piriformis muscle: Unremarkable. Gluteal aponeurotic fascia and IT band: Unremarkable. Pelvic soft tissues: Unremarkable. IMPRESSION: 1. Ill-defined moderate to high-grade partial tearing of the left gluteus medius tendon insertion. Moderate left greater trochanteric bursitis. Correlate with any point tenderness and clinical signs/symptoms. 2. Suspected linear tear within the base of the left hip labrum from the 1 o'clock position through 2 o'clock position anterosuperiorly and suspected more generalized labral fraying although it must be noted that the labrum is not well evaluated because of motion artifact and nonarthrogram technique. No discrete left hip chondral loss is seen although it must be noted that smooth chondral thinning is not well evaluated for and cannot be excluded by MRI. No subchondral cystic change/subchondral edema-like signal. 3. Marked left acetabular overcoverage. 4. Mild bilateral sacroiliac joint degenerative changes may be degenerative in etiology but are nonspecific. No convincing evidence of acute inflammatory sacroiliitis. 5. Osteitis pubis. RCB Electronically signed on 08/19/2025 3:00:00 PM by Honorio Tyler M.D.
== END 2025-08-13 09:04 | disposition home or self-care (01) ==
PROVIDERS: PCP Family Medicine; Visit Provider Orthopaedic Surgery Sports Medicine
DX: M25.552 Pain in left hip (principal); S76.012A Strain of muscle, fascia and tendon of left hip, initial encounter; S73.192A Other sprain of left hip, initial encounter; M86.8X8 Other osteomyelitis, other site
CPT/HCPCS: 73721